=== PATIENT | female | born 1975 | race Caucasian/White ===

== ENCOUNTER 2023-11-20 16:55 | Inpatient (IN) ==
[2023-11-20] MEDS: Morphine 4 MG/ML VIAL (1 ml) IV ONE ×2 (17:17→19:44)
[2023-11-20] MEDS: Ondansetron 4 mg VIAL 2 MG/ML 2 ml VIAL IV ONE (19:44)
[2023-11-20 20:21] LABS: ABS Eosinophils 0.1 10^3/uL (0.0-0.5); ABS Lymphocytes 1.2 10^3/uL (1.0-4.8); ABS Monocytes 0.6 10^3/uL (0.0-0.9); ABS Neutrophils 12.5 10^3/uL (1.5-7.6); Eosinophil % 0.5 %; Hematocrit 32.7 % (35-45); Mean Corpuscular Hemoglobin 29.7 pg (27-33); Mean Corpuscular Hgb Conc 33.5 g/dL (31-36); Mean Corpuscular Volume 88.7 fL (80-97); Platelet Count 192 10^3/uL (150-450); Red Blood Count 3.69 10^6/uL (3.63-4.92); Red Cell Distribution Width 14.1 % (12-17); White Blood Count 14.4 10^3/uL (3.8-11.8)
[2023-11-20 21:05] LABS: ALT 8 U/L (7-52); AST 11 U/L (13-39); Albumin 2.4 g/dL (3.2-5.2); Albumin/Globulin Ratio 1.8 (1-3); Alkaline Phosphatase 21 U/L (35-149); Anion Gap 10 mmol/L (2-16); Blood Urea Nitrogen 6 mg/dL (6-24); CO2 Carbon Dioxide 16 mmol/L (22-32); Calcium 5.4 mg/dL (8.6-10.3); Chloride 118 mmol/L (101-111); Creatinine, Serum 0.36 mg/dL (0.51-0.95); Globulin 1.3 g/dL (2-4); Glucose 75 mg/dL (70-100); HCG Pregnancy < 0.60 mIU/mL; Potassium 2.4 mmol/L (3.5-5.0); Sodium 144 mmol/L (135-145); Total Bilirubin 0.2 mg/dL (0.2-1.0); Total Protein 3.7 g/dL (6.4-8.9); eGFR CKD-EPI 126.7 (>60)
[2023-11-20] MEDS ORDERED: KCL 10 MEQ/50 ML IVPREMIX 10 MEQ/50 ML BAG IV SCH (22:00)
[2023-11-20 22:01] LABS: % Iron Saturation 14 % (15-55); .Transferrin 182 mg/dL (203-362); Iron 35 ug/dL (50-212); Total Iron Binding Capacity 255 mcg/dL (250-450); Unsaturated Iron Binding 220 ug/dL
[2023-11-20 22:13] LABS: Magnesium 1.1 mg/dL (1.9-2.7)
[2023-11-20 22:18] LABS: Calcium 8.6 mg/dL (8.6-10.3); Creatinine, Serum 0.71 mg/dL (0.51-0.95); Potassium 3.7 mmol/L (3.5-5.0); eGFR CKD-EPI 106.1 (>60)
[2023-11-20 22:23] LABS: Vitamin D Total 25(OH) 24.2 ng/mL (20-50)
[2023-11-20 22:27] LABS: Folate 16.01 ng/mL (5.90-24.80); Vitamin B12 158 pg/mL (180-914)
[2023-11-20] MEDS: Heparin 5000 UNITS/ML 1 mL VIAL SUBCUT ONE (22:40)
[2023-11-20 23:46] LABS: Albumin 3.7 g/dL (3.2-5.2); Magnesium 1.8 mg/dL (1.9-2.7)
[2023-11-20] MEDS: LEVONORGESTREL PO SCH (23:48)
[2023-11-20] MEDS: ETHINYL ESTRADIOL PO SCH (23:48)
[2023-11-21] MEDS: CALCIUM GLUCONATE 1GM/50ML NS 1 GM/50 ML BAG IV SCH (00:25)
[2023-11-21] MEDS: Potassium Chloride LIQUID 20 MEQ/15 ML LIQUID PO ONE (00:25)
[2023-11-21] MEDS: KCL 10 MEQ/50 ML IVPREMIX 10 MEQ/50 ML BAG IV SCH (00:25)
[2023-11-21 00:31] LABS: % Iron Saturation 12 % (15-55); .Transferrin 301 mg/dL (203-362); Iron 51 ug/dL (50-212); Total Iron Binding Capacity 421 mcg/dL (250-450); Unsaturated Iron Binding 370 ug/dL
[2023-11-21 00:53] LABS: Ferritin 25.7 ng/mL (11-307)
[2023-11-21 00:57] LABS: Vitamin B12 221 pg/mL (180-914)
[2023-11-21 00:58] LABS: Folate > 20.00 ng/mL (5.90-24.80)
[2023-11-21 00:59] LABS: Vitamin D Total 25(OH) 34.9 ng/mL (20-50)
[2023-11-21] MEDS: Potassium Chlor 10 meq TAB PO ONE (01:36)
[2023-11-21] MEDS: Magnesium Sulfate 2 gm BAG 2 GM/50 ML BAG IVPB ONE (01:37)
[2023-11-21 06:46] LABS: ABS Eosinophils 0.1 10^3/uL (0.0-0.5); ABS Lymphocytes 1.2 10^3/uL (1.0-4.8); ABS Monocytes 0.5 10^3/uL (0.0-0.9); ABS Neutrophils 6.3 10^3/uL (1.5-7.6); Eosinophil % 1.1 %; Hematocrit 35.9 % (35-45); Hemoglobin 12.2 g/dL (11.5-14.3); Lymphocyte % 15.1 %; Mean Corpuscular Hemoglobin 29.9 pg (27-33); Mean Corpuscular Hgb Conc 34.1 g/dL (31-36); Mean Corpuscular Volume 87.8 fL (80-97); Mean Platelet Volume 8.3 fL (7.5-11.2); Platelet Count 207 10^3/uL (150-450); Red Blood Count 4.09 10^6/uL (3.63-4.92); Red Cell Distribution Width 14.1 % (12-17); White Blood Count 8.1 10^3/uL (3.8-11.8)
[2023-11-21 07:04] LABS: Calcium 8.8 mg/dL (8.6-10.3); Creatinine, Serum 0.68 mg/dL (0.51-0.95); Magnesium 2.3 mg/dL (1.9-2.7); eGFR CKD-EPI 108.7 (>60)
[2023-11-21] MEDS: Lactated Ringers 1000 ml BAG 1,000 ML IV SCH ×2 (07:49→21:25)
[2023-11-21] MEDS ORDERED: ceFAZolin 2 GM PREMIX 2 GM/50 ML BAG ONE (14:08)
[2023-11-21] MEDS ORDERED: Morphine 4 MG/ML VIAL (1 ml) ONE (15:08)
[2023-11-21] MEDS: Morphine 2 MG/ML SYRINGE IV PRN (15:13)
[2023-11-21] MEDS ORDERED: ROPIVACAINE 5 MG/ML 30 ML BTL (0.5%) ONE (15:53)
[2023-11-21] MEDS ORDERED: Dexamethasone IV 4 MG/ML VIAL 1 ml VIAL ONE (15:55)
[2023-11-21] MEDS ORDERED: Glycopyrrolate IV 0.2 MG/ML 1 ML VIAL ONE (15:55)
[2023-11-21] MEDS ORDERED: Propofol 10 MG/ML 20 ML BTL ONE (15:55)
[2023-11-21] MEDS ORDERED: Ondansetron 4 mg VIAL 2 MG/ML 2 ml VIAL ONE (15:55)
[2023-11-21] MEDS ORDERED: Lidocaine 2% PF 5 ML VIAL ONE (15:56)
[2023-11-21] MEDS ORDERED: Rocuronium 50 mg VIAL 10 mg/ml 5 ml VIAL (50 mg) ONE ×2 (15:58→17:29)
[2023-11-21] MEDS ORDERED: fentaNYL 100 mcg/2 ml 50 MCG/ML VIAL ONE (15:59)
[2023-11-21] MEDS ORDERED: Midazolam 2 mg/2 ml VIAL 1 mg/ml 2 ml VIAL (2 mg) ONE (15:59)
[2023-11-21] MEDS ORDERED: HYDROmorphone 0.5 MG/0.5 ML SYRINGE ONE (16:19)
[2023-11-21] MEDS ORDERED: Tranexamic Acid 1 GM/100ML BAG 2,000 MG/200 ML BAG IV ONE (16:20)
[2023-11-21] MEDS ORDERED: Senna TAB 8.6 mg TAB PO PRN (16:47)
[2023-11-21] MEDS ORDERED: Magnesium Hydroxide LIQ 30 ML UDC PO PRN (16:47)
[2023-11-21] MEDS ORDERED: Polyethylene Glycol 3350 17 GM PACKET PO PRN (16:47)
[2023-11-21] MEDS ORDERED: Morphine 2 MG/ML SYRINGE IV PRN (16:47)
[2023-11-21] MEDS ORDERED: Acetaminophen IV 1 GM/100ML 1,000 MG/100 ML BAG IV ONE (17:32)
[2023-11-21] MEDS ORDERED: Albumin Human 5% 12.5 GM/250 ML BTL IV ONE (17:37)
[2023-11-21] MEDS ORDERED: Phenylephrine IV 10 MG/ML 1 ml VIAL ONE (17:38)
[2023-11-21] MEDS ORDERED: Naloxone 0.4 mg VIAL 0.4 mg/ml 1 ml VIAL IV PRN (20:10)
[2023-11-21] MEDS ORDERED: fentaNYL 100 mcg/2 ml 50 MCG/ML VIAL IV PRN (20:10)
[2023-11-21] MEDS ORDERED: Ondansetron 4 mg VIAL 2 MG/ML 2 ml VIAL IV PRN (20:10)
[2023-11-21] MEDS ORDERED: Prochlorperazine 5 mg/ml 2 ml VIAL (10 mg) ONE (20:15)
[2023-11-21] MEDS ORDERED: Scopolamine 1 mg/72hr PATCH ONE (20:15)
[2023-11-21] MEDS: Prochlorperazine 5 mg/ml 2 ml VIAL (10 mg) IV PRN (20:16)
[2023-11-21] MEDS: Scopolamine 1 mg/72hr PATCH TRANSDERM PRN (20:16)
[2023-11-21] MEDS: ceFAZolin 1 GM ADVAN 1 GM in NS 0.9% 50 ML 50 ML IVPB SCH (21:26)
[2023-11-21] MEDS: Magnesium Hydroxide LIQ 30 ML UDC PO SCH (21:30)
[2023-11-21] MEDS: ETHINYL ESTRADIOL PO SCH (22:16)
[2023-11-21] MEDS: LEVONORGESTREL PO SCH (22:16)
[2023-11-22 06:29] LABS: Hematocrit 30.3 % (35-45); Hemoglobin 10.3 g/dL (11.5-14.3); Mean Platelet Volume 8.1 fL (7.5-11.2); Platelet Count 179 10^3/uL (150-450)
[2023-11-22 06:44] LABS: Calcium 8.3 mg/dL (8.6-10.3); Creatinine, Serum 0.79 mg/dL (0.51-0.95); Potassium 4.2 mmol/L (3.5-5.0); eGFR CKD-EPI 93.4 (>60)
[2023-11-22] MEDS ORDERED: Enoxaparin 40 MG/0.4 ML SYR SUBCUT SCH (12:00)
[2023-11-22 14:03] VITALS: BP 109/64
== END 2023-11-22 15:50 | disposition home or self-care (01) | DRG 301 ==
LOC: EDHOLD 16:55 → ED 16:55 → SUATTDRO 20:46 → SSU 22:37
PROVIDERS: ADMIT Internal Medicine; ATTEND Internal Medicine